=== PATIENT | female | born 1955 | race Caucasian/White ===

== ENCOUNTER → 2016-12-04 | Outpatient (CLI) | payer BC ==
--- NOTE | 2016-12-07 16:53 | RADIOLOGY REPORT PS360 ---
History and Indications: Obesity hypertension family history shoulder pain shortness of breath. Procedure: Patient received 0.4 mg Lexiscan, resting heart rate was 58 bpm, resting blood pressure 140/86 with Lexiscan maximum heart rate achieved was 86 bpm which is less than 85% of the maximum predicted heart rate and a blood pressure was 137/58, with Lexiscan patient complained of mild stomach discomfort headache and shortness of breath. Electrocardiogram: Resting electrocardiogram shows sinus bradycardia, with Lexiscan there is less than 1.[address] segment depression noted from the baseline EKG. The EKG portion of the Lexiscan is nondiagnostic. Cardiac stress and resting SPECT images: Cardiac stress and rest SPECT images were obtained using technetium 99 Myoview 10.7 MCI at rest 33.1 MCI at stress, gated SPECT for analysis of segmental wall motion and calculation of the ejection fraction was also done. Cardiac stress and rest SPECT images show mild decreased tracer activity in the anterior wall in the fixed pattern with normal contractility in the gated SPECT is likely secondary to soft tissue attenuation, no reversible ischemia seen. Computer derived ejection fraction is over 65% with no obvious regional wall motion abnormality right ventricle is normal size and contractility. Conclusion: 1. The EKG portion of the Lexiscan is nondiagnostic. 2. No obvious scintigraphic evidence of reversible ischemia seen, computer derived ejection fraction is over 65% no regional wall motion abnormality, right ventricle is normal size and contractility. 3. Normal Lexiscan Myoview study.
--- NOTE | 2016-12-08 19:26 | RADIOLOGY REPORT PS360 ---
PROCEDURE: 2-D M-mode and color Doppler study INDICATIONS FOR THE TEST: Chest pain X COPD Heart Murmur Tobacco Smoking Palpitations Fatigue Syncope Edema HypertensionXDiabetes Mellitus Rheumatic Fever SOB DOEXObesity Hyperlipidemia Family History HD Additional History PATIENT INFORMATION HEIGHT: 67 WEIGHT:220 GENDER: Female B/P:135/86 2-D/M-MODE INTERPRETATION: 2-D MEASUREMENTS OBSERVED VALUES IN CMS Right Ventricular Dimension (RVDd) 1.6 Interventricular Septum (Thickness)(IVsd) 1.0 Left Ventricular Internal Dimensions(LVIDd) 5.6 Left Ventricular Posterior Wall (Thickness)(LVPWd) .9 Aortic Root 3.0 Aortic Cusp Separation 2.0 Left Atrial Dimensions (LAD) 2.7 2D 1. Left atrium is normal size, left ventricle is normal size, there is no concentric left ventricular hypertrophy, visually estimated ejection fraction 55% with no obvious regional wall motion abnormality. 2. The right atrium and right ventricle are normal size and contractility. 3. The aortic valve is minimally thickened and fibrosed there is no aortic stenosis. 4. The mitral and tricuspid valve restructure normal. 5. The pulmonic valve is not well visualized. 6. There is small circumferential pericardial effusion noted. DOPPLER INTERROGATION: Doppler interrogation of the aortic mitral and tricuspid valve is essentially unremarkable. CONCLUSION: 1. Normal left ventricular size, preserved left ventricular systolic function, visually estimated ejection fraction 55% with no obvious regional wall motion abnormality. 2. Small circumferential pericardial effusion of no hemodynamic significance seen.
== END ==
LOC: RAD 07:15
DX: R07.9 Chest pain, unspecified (principal); I10 Essential (primary) hypertension; E78.5 Hyperlipidemia, unspecified; E03.9 Hypothyroidism, unspecified
CPT/HCPCS: A9502; J2785

== ENCOUNTER → 2017-09-23 | Outpatient (CLI) | payer BC ==
[2017-09-23 19:46] LABS: HEMOGLOBIN 13.6 g/dL (12.2-16.2); LYMPH # 2.7 K/mm3 (0.7-4.5); LYMPH % 29.7 % (10-50.0)
[2017-09-23 20:50] LABS: BUN 18 mg/dL (7-18)
[2017-09-23 20:53] LABS: GFR (ESTIMATED) 73 ML/MIN (59-)
[2017-09-25 07:38] LABS: Vitamin D, 25-Hydroxy 39.4 ng/mL (30.0-100.0)
[2017-09-25 09:37] LABS: FSH 60.3 mIU/mL (.); HBsAg Screen Negative (Negative); Hep A Ab, IgM Negative (Negative); Hep B Core Ab, IgM Negative (Negative); Hep C Virus Ab 0.1 (0.0-0.9); LH 31.6 mIU/mL (.)
[2017-09-25 16:36] LABS: Folate (Folic Acid) 4.3 ng/mL (>3.0); Vitamin B12 575 pg/mL (211-946)
[2017-09-28 10:40] LABS: Free Testosterone(Direct) 0.5 pg/mL (0.0-4.2)
== END ==
LOC: LAB 19:08
PROVIDERS: Physician Assistant
DX: I10 Essential (primary) hypertension (principal); E03.9 Hypothyroidism, unspecified; Z00.00 Encounter for general adult medical examination without abnormal findings